=== PATIENT | male | born 1955 | race Caucasian/White ===

== ENCOUNTER 2017-06-19 07:04 | Day surgery (SDC) | payer OTHER ==
[2017-06-19] MEDS ORDERED: PROPOFOL 20 ML (08:30)
[2017-06-19] MEDS ORDERED: MIDAZOLAM 1 MG/ML 2 ML INJ (08:30)
[2017-06-19] MEDS ORDERED: FENTAnyl 50 MCG/ML VIAL (08:30)
== END 2017-06-19 16:04 | disposition home or self-care (01) ==
LOC: GIL 07:04
DX: Z12.11 Encounter for screening for malignant neoplasm of colon (principal); D12.5 Benign neoplasm of sigmoid colon; K21.9 Gastro-esophageal reflux disease without esophagitis; K29.70 Gastritis, unspecified, without bleeding; B96.81 Helicobacter pylori [H. pylori] as the cause of diseases classified elsewhere; K64.8 Other hemorrhoids; I10 Essential (primary) hypertension
CPT/HCPCS: 43239; 87081; 88305